=== PATIENT | male | born 1975 | race Caucasian/White ===

== ENCOUNTER 2016-09-07 11:44 | Emergency (ER) | payer BC ==
[~2016-09-07] VITALS: Ht 167.6 cm; Wt 89.6 kg
[2016-09-07 11:46] VITALS: Ht 167.6 cm; Wt 89.6 kg
[2016-09-07] MEDS ORDERED: MoRPHine SULFATE 10 MG/ML CARP/VIAL IV STA (12:06)
[2016-09-07] MEDS ORDERED: ONDANSETRON INJ 2 MG/ML 2 ML VIAL IV STA (12:06)
[2016-09-07] MEDS ORDERED: SODIUM CHLORIDE 0.9% 1000ML 1,000 ML IV STA (12:07)
[2016-09-07] MEDS ORDERED: MoRPHine SULFATE 4 MG/ML 1 ML CARP\\VIAL ONE (12:09)
--- NOTE | 2016-09-07 12:41 | EMERGENCY ROOM VISIT NOTE ---
History First contact with patient: 11:59 Chief Complaint: FLANK PAIN Stated Complaint: EXTREAM RIGHT SIDE AND BACK PAIN History of Present Illness The patient is a 41 year old male who presents to the Emergency Room with complaints of right-sided back pain which began suddenly this morning. The patient states that he had a sudden onset of sharp right back pain which radiated into his penis beginning this morning. He states he is unable to find a comfortable position. He feels like he has to urinate, but states he is having difficulty doing so. He rates his discomfort a 10/10. He has not taken any medication at home. He does report he had one kidney stone several years ago which passed on its own. He denies any vomiting but states he is nauseous. He denies any changes in bowel movements, chest pain or shortness of breath. Review of Systems A complete 10 point review of systems was reviewed with the patient with pertinent positives and negatives as per history of present illness. All else were negative. Social History Smoking Status: Never Smoker Current/Historical Medications Scheduled Ondasetron Odt (Zofran Odt), 4 MG SL Q6H Tamsulosin Hcl (Flomax), 0.4 MG PO DAILY Scheduled PRN Oxycodone/Acetaminophen 5MG/325MG (Percocet 5MG/325MG), 1-2 TABS PO Q4H PRN for Pain Physical Exam Vital Signs Date Time Temp Pulse Resp B/P (MAP) Pulse Ox O2 Delivery O2 Flow Rate FiO2 09/07/16 15:32 36.5 68 18 128/85 93 09/07/16 14:55 68 18 128/85 93 Room Air 09/07/16 14:40 77 14 139/109 97 Room Air 09/07/16 13:40 67 14 123/85 92 Room Air 09/07/16 11:46 36.5 92 18 160/115 96 Room Air Physical Exam VITALS: Vitals are noted on the nurse's note and reviewed by myself. Vital signs stable. GENERAL: This is a 41-year-old male, appears to be in pain, pacing around the room, well-developed well-nourished. HEART: Regular rate and rhythm without murmurs gallops or rubs. LUNGS: Clear to auscultation bilaterally without wheezes, rales or rhonchi. ABDOMEN: Positive bowel sounds x 4. No significant tenderness to palpation. No masses or organomegaly. MUSCULOSKELETAL: Moderate left CVA tenderness. NEURO: Patient was alert and oriented to person place and time. Medical Decision & Procedures ER Provider Diagnostic Interpretation: CT SCAN OF THE ABDOMEN AND PELVIS WITHOUT IV CONTRAST IMPRESSION: 1. There is a 5 mm obstructing calculus at the right vesicoureteral junction. This causes mild to moderate right-sided hydroureteronephrosis. 2. No additional renal calculi are identified. 3. There is a 3.1 cm exophytic lesion arising from the interpolar left kidney. This does not meet CT criteria for simple cyst. Although this may simply represent a complex cyst a renal neoplasm is not excluded. 4. There is a 1.4 cm ovoid, well-circumscribed, and slightly hyperdense nodule identified in the pancreatic tail. This is isodense to the spleen and likely represents an intrapancreatic splenule. 5. A nonemergent contrast-ehanced abdominal MRI is recommended for further assessment of the left renal and pancreatic findings. 6. Hepatic steatosis. 7. There is an indeterminant 4 mm right lower lobe pulmonary nodule. Laboratory Results 09/07/16 12:20 Red Blood Count 5.41, Mean Corpuscular Volume 89.3, Mean Corpuscular Hemoglobin 30.7, Mean Corpuscular Hemoglobin Concent 34.4, Mean Platelet Volume 9.7, Neutrophils (%) (Auto) 57.7, Lymphocytes (%) (Auto) 29.6, Monocytes (%) (Auto) 9.0, Eosinophils (%) (Auto) 2.4, Basophils (%) (Auto) 1.0, Neutrophils # (Auto) 4.53, Lymphocytes # (Auto) 2.32, Monocytes # (Auto) 0.71, Eosinophils # (Auto) 0.19, Basophils # (Auto) 0.08 09/07/16 12:20 Test 09/07/16 00:00 09/07/16 12:20 Urine Color YELLOW Urine Appearance CLEAR (CLEAR) Urine pH 5.0 (4.5-7.5) Urine Specific [place] 1.024 (1.000-1.030) Urine Protein TRACE (NEG) Urine Glucose (UA) NEG (NEG) Urine Ketones NEG (NEG) Urine Occult Blood 3+ (NEG) Urine Nitrite NEG (NEG) Urine Bilirubin NEG (NEG) Urine Urobilinogen NEG (NEG) Urine Leukocyte Esterase NEG (NEG) Urine WBC (Auto) 1-5 /hpf (0-5) Urine RBC (Auto) >30 /hpf (0-4) Urine Hyaline Casts (Auto) 1-5 /lpf (0-5) Urine Epithelial Cells (Auto) 20-30 /lpf (0-5) Urine Bacteria (Auto) NEG (NEG) White Blood Count 7.85 K/uL (4.8-10.8) Red Blood Count 5.41 M/uL (4.7-6.1) Hemoglobin 16.6 g/dL (14.0-18.0) Hematocrit 48.3 % (42-52) Mean Corpuscular Volume 89.3 fL (80-100) Mean Corpuscular Hemoglobin 30.7 pg (25-34) Mean Corpuscular Hemoglobin Concent 34.4 g/dl (32-36) Platelet Count 304 K/uL (130-400) Mean Platelet Volume 9.7 fL (7.4-10.4) Neutrophils (%) (Auto) 57.7 % Lymphocytes (%) (Auto) 29.6 % Monocytes (%) (Auto) 9.0 % Eosinophils (%) (Auto) 2.4 % Basophils (%) (Auto) 1.0 % Neutrophils # (Auto) 4.53 K/uL (1.4-6.5) Lymphocytes # (Auto) 2.32 K/uL (1.2-3.4) Monocytes # (Auto) 0.71 K/uL (0.11-0.59) Eosinophils # (Auto) 0.19 K/uL (0-0.5) Basophils # (Auto) 0.08 K/uL (0-0.2) RDW Standard Deviation 44.2 fL (36.4-46.3) RDW Coefficient of Variation 13.6 % (11.5-14.5) Immature Granulocyte % (Auto) 0.3 % Immature Granulocyte # (Auto) 0.02 K/uL (0.00-0.02) Anion Gap 6.0 mmol/L (3-11) Est Creatinine Clear Calc Drug Dose 84.0 ml/min Estimated GFR () 85.9 Estimated GFR (Non- 74.1 BUN/Creatinine Ratio 8.3 (10-20) Calcium Level 9.1 mg/dl (8.5-10.1) Chemistry Specimen Hemolysis Medications Administered Medications (Trade) Dose Ordered Sig/Jaida Route Start Time Stop Time Status Last Admin Dose Admin Ondansetron HCl (Zofran Inj) 4 mg NOW STAT IV 09/07/16 12:06 09/07/16 12:07 DC 09/07/16 12:14 4 MG Sodium Chloride 1,000 ml @ 999 mls/hr Q1H1M STAT IV 09/07/16 12:07 09/07/16 13:07 DC 09/07/16 12:14 999 MLS/HR Morphine Sulfate (MoRPHine SULFATE INJ) 8 mg STK-MED ONCE .ROUTE 09/07/16 12:09 09/07/16 12:10 DC 09/07/16 12:14 8 MG Hydromorphone HCl (Dilaudid Inj) 1 mg NOW STAT IV 09/07/16 13:30 09/07/16 13:31 DC 09/07/16 13:37 1 MG Ketorolac Tromethamine (Toradol Inj) 30 mg NOW STAT IV 09/07/16 14:45 09/07/16 14:46 DC 09/07/16 14:53 30 MG ED Course The patient was evaluated as above. Labs were drawn and IV access was obtained. Patient was medicated with 8 mg morphine, 4 mg Zofran and 1 L normal saline solution. CT of the abdomen and pelvis was performed and read by radiology as above. Patient was reevaluated and had continued pain. He was given 1 mg Dilaudid IV. Patient was reevaluated and felt much better. Findings were discussed with the patient. Case management will evaluate the patient to schedule follow-up with a primary care provider. Discharge instructions were reviewed with the patient. The patient verbalized understanding of my assessment and treatment plan and was discharged home in good condition. Medical Decision Differential diagnosis includes renal calculus, pyelonephritis, musculoskeletal pain, malignancy, colitis, pancreatitis, cholecystitis, among others. The patient is a 41-year-old male who presents today complaining of flank pain. Labs revealed no leukocytosis or anemia. Creatinine is within normal limits. CT of the abdomen and pelvis did show a 5 mm stone at the right UVJ. Incidentally, a mass of the left kidney and questionable splenule of the pancreas were also noted. The patient will need follow-up for an MRI of the abdomen and pelvis. Case management will set the patient up with [facility] physician group for follow-up. The patient is comfortable with outpatient treatment of his kidney stone. Will be given a prescription for pain medication , nausea medication and Flomax. He was given a urine strainer. He was encouraged to return here for any new/concerning symptoms or if his pain worsens at home. Based on the patient's presentation and work up, I feel the patient is stable for outpatient treatment. The patient was educated to return to the emergency department for any worsening of their current condition or new/concerning symptoms. He will follow up with primary care. Medication reconciliation: I attest that I have personally reviewed the patient 's current medication list. Blood Pressure Screening: Patient was found to have a slightly elevated blood pressure due to circumstances. I do not believe that the patient requires hypertension monitoring. [place] Drug Monitoring Program Search Results: patient reviewed within database, no issues identified Impression Primary Impression: Ureteral calculus, left Departure Information Dispostion Home / Self-Care Condition GOOD Prescriptions Tamsulosin Hcl (FLOMAX) 0.4 Mg Cap 0.4 MG PO DAILY for 10 Days, #10 CAP Prov: Rachel Arteaga PA-C 09/07/16 Ondasetron Odt (ZOFRAN ODT) 4 Mg Tab 4 MG SL Q6H for Nausea, #15 TAB Prov: Rachel Arteaga PA-C 09/07/16 Oxycodone/Acetaminophen 5MG/325MG (PERCOCET 5MG/325MG) Tab 1-2 TABS PO Q4H Y for Pain, #25 TAB For Initial Treatment Prov: Rachel Arteaga PA-C 09/07/16 Referrals No Doctor, Assigned (PCP) Patient Instructions My [facility] Additional Instructions You have been treated in the Emergency Department today for a Kidney Stone ( Nephrolithiasis). You have received pain medicine in the emergency department which impairs your ability to operate a vehicle. It is illegal for you to drive after receiving these medicines. You have been prescribed Percocet to be used for pain control. This is a narcotic medication. You cannot drive or consume alcohol while on this medicine. This medicine should only be used for pain that cannot be controlled with [id number] pain medicines. You have been prescribed Zofran to be used for any nausea or vomiting. Take as prescribed. You have been prescribed Flomax 0.4 mg to be taken ONCE daily. This medicine has been prescribed as it can help relax the smooth muscles of the urinary tract increasing transit time of the kidney stone. For pain control, you can use the following [id number] medicines (if >12 yo): - Regular strength (325mg/tab) Tylenol (acetaminophen) 2 tabs every 4-6 hours as needed. Do not exceed 12 tablets in a 24 hour period. Avoid taking more than 4 grams (4000 mg) of Tylenol per day. This includes any other sources of acetaminophen you may take on a regular basis. - Regular strength (200 mg/tab) Advil (ibuprofen) 1-2 tabs every 4-6 hours as needed. Do not exceed a dose of 3200 mg per day. You have been provided a strainer and specimen collection cup. You should strain your urine to collect any passed stones. Your stones can be placed into the specimen cup and taken to your Urologist for further evaluation. Case management has made you a follow-up appointment with a primary care provider. There were some findings of your left kidney and pancreas which will need further testing. Return to the Emergency Department if your symptoms persist despite the treatment plan outlined above or if you develop the following symptoms: intractable pain, fever, chills, or large amounts of blood in your urine.
[2016-09-07 12:57] LABS: BASO ABS # 0.08 K/uL (0-0.2); COMPLETE YES; EOS % 2.4 %; HEMATOCRIT 48.3 % (42-52); IG% 0.3 %; LYMPH % 29.6 %; LYMPH ABS # 2.32 K/uL (1.2-3.4); MEAN CELL VOLUME 89.3 fL (80-100); MEAN CORPUSCULAR HEMOGLOBIN 30.7 pg (25-34); MEAN CORPUSCULAR HGB CONC 34.4 g/dl (32-36); MEAN PLATELET VOLUME 9.7 fL (7.4-10.4); NEUT % 57.7 %; PLATELET COUNT 304 K/uL (130-400); RED BLOOD COUNT 5.41 M/uL (4.7-6.1); WHITE BLOOD COUNT 7.85 K/uL (4.8-10.8)
[2016-09-07 13:06] LABS: URINE APPEARANCE CLEAR (CLEAR); URINE BILIRUBIN NEG (NEG); URINE COLOR YELLOW; URINE EPITHELIAL CELL AUTO 20-30 /lpf (0-5); URINE NITRITE NEG (NEG); URINE SPECIFIC GRAVITY 1.024 (1.000-1.030); UROBILINOGEN NEG (NEG); ZZUR CULT IF INDIC CLEAN CATCH NO
[2016-09-07 13:29] LABS: MANUAL MICROSCOPIC REQUIRED? NO; REVIEW REQ? NO
[2016-09-07] MEDS ORDERED: HYDROmorphone INJ 1 MG/ML SYR IV STA (13:30)
[2016-09-07 13:38] LABS: BUN/CREATININE RATIO 8.3 (10-20); CALCIUM 9.1 mg/dl (8.5-10.1); CREATININE 1.2 mg/dl (0.60-1.40); POTASSIUM 4.2 mmol/L (3.5-5.1)
--- NOTE | 2016-09-07 13:38 | DIAGNOSTIC IMAGING REPORT ---
CT SCAN OF THE ABDOMEN AND PELVIS WITHOUT IV CONTRAST CLINICAL HISTORY: Right flank pain. COMPARISON STUDY: No priors. TECHNIQUE: CT scan of the abdomen and pelvis is performed from the lung bases to the proximal femora. Images are reviewed in the axial, sagittal, and coronal planes. IV contrast was not administered for this examination. Automated dose control exposure was utilized. CT DOSE: 1247.79 mGy.cm FINDINGS: Lung bases: The heart is normal in size and without pericardial effusion. There is no airspace consolidation or pleural effusion. Linear scarring versus atelectasis is seen in the left lung base. A 4 mm right lower lobe nodule is seen on image #63. Liver: The unenhanced liver is normal in size and contour. The liver demonstrates heterogeneously diminished attenuation consistent with hepatic steatosis. There is no intrahepatic biliary ductal dilatation. Gallbladder: Surgically absent noting clips in the gallbladder fossa. Spleen: Normal in size and attenuation. Pancreas: There is mild glandular atrophy of the pancreas. There is a 1.4 cm ovoid hyperdense nodules in the pancreatic tail seen on image #138. Adrenal glands: Unremarkable. Kidneys: The unenhanced kidneys are normal in size. There is a 5 mm obstructing calculus at the right vesicoureteral junction seen on axial image #397. This causes mild to moderate right-sided hydroureteronephrosis. No additional calculi are identified in either kidney. There is no left-sided hydronephrosis. There is a 3.1 cm exophytic lesion arising from the interpolar left kidney seen on image #188. This does not meet CT criteria for a simple cyst. Abdominal vasculature: The abdominal aorta is normal in course and caliber. Bowel: The small bowel and colon are normal in course and caliber. The appendix is surgically absent. Peritoneum: There is no intraperitoneal free air or abdominal ascites. There is a small fat-containing umbilical hernia. Lymphadenopathy: None. Pelvic viscera: The bladder, prostate, and seminal vesicles are normal as imaged. There are small bilateral fat-containing inguinal hernias. Skeletal structures: No lytic or blastic lesions are seen. A tiny bone island is noted in the right proximal femur. IMPRESSION: 1. There is a 5 mm obstructing calculus at the right vesicoureteral junction. This causes mild to moderate right-sided hydroureteronephrosis. 2. No additional renal calculi are identified. 3. There is a 3.1 cm exophytic lesion arising from the interpolar left kidney. This does not meet CT criteria for simple cyst. Although this may simply represent a complex cyst a renal neoplasm is not excluded. 4. There is a 1.4 cm ovoid, well-circumscribed, and slightly hyperdense nodule identified in the pancreatic tail. This is isodense to the spleen and likely represents an intrapancreatic splenule. 5. A nonemergent contrast-ehanced abdominal MRI is recommended for further assessment of the left renal and pancreatic findings. 6. Hepatic steatosis. 7. There is an indeterminant 4 mm right lower lobe pulmonary nodule. Electronically signed by: Armand Evans M.D. 09/07/2016 1:36 PM Dictated Date/Time: 09/07/2016 1:27 PM
[2016-09-07] MEDS ORDERED: KETOROLAC TROMETHAMINE 30 MG/ML VIAL IV STA (14:45)
[2016-09-07] MEDS ORDERED: TAMS0.4C38 PO (14:48)
[2016-09-07] MEDS ORDERED: ONDA4TAB10 SL (14:48)
[2016-09-07] MEDS ORDERED: OXYC-57 PO (14:48)
[2016-09-07 15:32] VITALS: BP 128/85; PULSE 68; TEMP 36.5; O2SAT 93
== END 2016-09-07 15:20 | disposition home or self-care (01) ==
LOC: C.EDB 11:45 → C.EDA 15:20
DX: N20.1 Calculus of ureter (principal); Z87.442 Personal history of urinary calculi

== ENCOUNTER → 2016-09-14 | Outpatient (CLI) | payer BC ==
[~2016-09-14] MED LIST: ONDA4TAB10 SL; OXYC-57 PO; TAMS0.4C38 PO
== END | disposition home or self-care (01) ==
LOC: C.LABSPEC 17:15
PROVIDERS: ATTEND Nurse Practitioner Adult Health
DX: N20.1 Calculus of ureter (principal)

== ENCOUNTER → 2016-09-25 | Outpatient (CLI) | payer BC ==
[~2016-09-25] MED LIST changes: +OPTIRAY 320 IV PRN; -TAMS0.4C38 PO
--- NOTE | 2016-09-25 16:02 | DIAGNOSTIC IMAGING REPORT ---
(CHEST) THORAX WITH CT DOSE: 462.21 mGycm HISTORY: Lung nodule R91.1 Lung [id number] TECHNIQUE: Multiaxial CT images of the chest were performed following the intravenous administration of contrast. COMPARISON: CT 09/07/2016 FINDINGS: There is a 3 mm nodule right lateral costophrenic angle transaxial image 39. There is a 4 mm nodule posterior right cosmetic angle image 43. Findings are considered similar as compared to the prior study. There is an area of potential pleural thickening versus atelectasis left base slightly more nodular than the prior exam. This measures 6 mm. Lungs otherwise are clear. No significant hilar or mediastinal valentin pathology. Thoracic aorta is normal in course and caliber. Fatty infiltration of the liver is again noted. IMPRESSION: 1. 3 low suspicion basilar lung nodules. 2. Follow-up per Fleischner criteria 3. Remainder the study is negative Please refer to below summary of Fleischner criteria recommendations for follow-up of incidental CT nodules (Primo Martini, Guidelines for management of small pulmonary nodules detected on CT scans: A statement from the Fleischner Society, Radiology 237: [phone].) SOLID NODULES Solitary nodule size: <6 mm * low risk patients: no follow-up needed * high risk patients: optional CT at 12 months Solitary nodule size: 6-8 mm * low risk patients: follow-up at 6-12 months, then consider further follow-up at 18-24 months * high risk patients: initial follow-up CT at 6-12 months and then at 18-24 months if no change Solitary nodule size: >8 mm * either low or high risk patients - consider follow-up CT at 3 months, and/or CT-PET, and/or biopsy Multiple nodules size: <6 mm * low risk patients: no routine follow-up * high risk patients: optional CT at 12 months Multiple nodules size: 6-8 mm * low risk patients: follow-up at 3-6 months, then consider further follow-up at 18-24 months * high risk patients: follow-up at 3-6 months, then at 18-24 months if no change Multiple nodules size: >8 mm * low risk patients: follow-up at 3-6 months, then consider further follow-up at 18-24 months * high risk patients: follow-up at 3-6 months, then at 18-24 months if no change Note: newly detected indeterminate nodule in persons 35 years of age or older. * Low risk patients: minimal or absent history of smoking and/or other known risk factors * high risk patients: history of smoking or of other known risk factors (e.g. first degree relative with lung cancer, or exposure to asbestos, radon, uranium) * if a nodule up to 8 mm is partly solid or is ground glass further follow-up is required after 24 months to exclude possible slow growing adenocarcinoma (HUBERT) SUBSOIL NODULES Solitary pure ground-glass nodule * nodule size <6 mm - no CT follow-up required * nodule size >=6 mm - follow-up CT at 6-12 months, then every 2 years until 5 years Solitary part-solid nodule * nodule size <6 mm - no CT follow-up required * nodule size >=6 mm - follow-up CT at 3-6 months. If unchanged, and solid component remains <6 mm, then annual follow-up for 5 years Multiple subsolid nodules * nodule size <6 mm - follow-up CT at 3-6 months, consider further follow-up at 2 and 4 years if stable * nodule size >=6 mm - follow-up CT at 3-6 months, subsequent management based on the most suspicious nodule(s) The above report was generated using voice recognition software. It may contain grammatical, syntax or spelling errors. Electronically signed by: Manny Beltre M.D. 09/25/2016 4:00 PM Dictated Date/Time: 09/25/2016 3:56 PM
== END | disposition home or self-care (01) ==
LOC: C.CTS 15:20
PROVIDERS: ATTEND Internal Medicine
DX: R91.1 Solitary pulmonary nodule (principal)

== ENCOUNTER → 2016-09-30 | Outpatient (CLI) | payer BC ==
[~2016-09-30] MED LIST changes: +GADAVIST IV PRN; -OPTIRAY 320 IV PRN
--- NOTE | 2016-09-30 12:58 | DIAGNOSTIC IMAGING REPORT ---
MRI OF THE ABDOMEN WITH AND WITHOUT CONTRAST CLINICAL HISTORY: Left renal lesion. COMPARISON STUDY: CT of the abdomen and pelvis September 07, 2016. TECHNIQUE: Utilizing a 1.5 Herlinda magnet and dedicated coil, multiplanar, multiecho imaging of the abdomen was performed pre and postcontrast administration. FINDINGS: Note is made of a 3.1 x 2.7 cm T2 hyperintense nonenhancing lesion arising from the upper pole of the left kidney which is slightly hyperintense on the precontrast T1 sequences. This corresponds to the lesion shown on CT of September 07, 2016. This reflects a cyst. No solid renal lesions are present. There is no hydronephrosis. There is no abdominal lymphadenopathy. There is fatty infiltration of the liver. There is no biliary or pancreatic ductal dilatation. A 1.5 cm pancreatic tail lesion follow the signal characteristics of the spleen and represents a splenule. This represents the additional finding shown on CT of September 07, 2016. IMPRESSION: 1. 3.1 cm left renal cyst. This corresponds to the lesion shown on CT of September 07, 2016. No solid renal lesions. 2. 1.5 cm pancreatic tail lesion which is consistent with an intrapancreatic splenule, a benign finding. Electronically signed by: Vern Collins M.D. 09/30/2016 12:57 PM Dictated Date/Time: 09/30/2016 12:48 PM
== END | disposition home or self-care (01) ==
LOC: C.MRI 10:41
PROVIDERS: ATTEND Nurse Practitioner Adult Health
DX: N20.1 Calculus of ureter (principal); N28.9 Disorder of kidney and ureter, unspecified

== ENCOUNTER → 2017-06-04 | Outpatient (CLI) | payer BC ==
--- NOTE | 2017-06-04 15:59 | DIAGNOSTIC IMAGING REPORT ---
(CHEST) THORAX WITHOUT CT DOSE: 360.47 mGy.cm HISTORY: Pulmonary nodules MULTIPLE PULMONARY NODULES TECHNIQUE: Multiaxial CT images of the chest were performed without contrast. A dose lowering technique was utilized adhering to the principles of ALARA. COMPARISON: 09/25/2016 FINDINGS: Unchanging nodularity right to lesser extent left base. No change in size configuration or number. No new or interval finding. Lungs otherwise appear clear. No significant mediastinal or hilar adenopathy. No significant axillary adenopathy. IMPRESSION: Stable low suspicion basilar nodularity. No new or interval process. A 1-2 year follow-up is felt to be sufficient. The above report was generated using voice recognition software. It may contain grammatical, syntax or spelling errors. Electronically signed by: Manny Beltre M.D. 06/04/2017 3:58 PM Dictated Date/Time: 06/04/2017 3:55 PM
== END | disposition home or self-care (01) ==
LOC: C.CTS 15:43
PROVIDERS: ATTEND Internal Medicine
DX: R91.1 Solitary pulmonary nodule (principal)